=== PATIENT | female | born 1975 | race Caucasian/White ===

== ENCOUNTER 2023-07-17 04:29 | Day surgery (SDC) | payer OTHER ==
[2023-07-14 09:01] VITALS: BMI 26.6
[2023-07-17 08:22] VITALS: TEMP 97.8
[2023-07-17 08:53] VITALS: BP 105/63; PULSE 64; RESP 16
== END 2023-07-17 09:00 | disposition home or self-care (01) ==
LOC: JASU-ENDO 04:29
PROVIDERS: ATTEND Internal Medicine Gastroenterology
PROC: 0DJD8ZZ Inspection of Lower Intestinal Tract, Via Natural or Artificial Opening Endoscopic (ICD-10-PCS; principal; 2023-07-17 08:00)
DX: Z12.11 Encounter for screening for malignant neoplasm of colon (principal); K64.8 Other hemorrhoids; K92.1 Melena
CPT/HCPCS: 81025